=== PATIENT | female | born 1970 | race Caucasian/White ===

== ENCOUNTER 2021-02-13 12:19 | Emergency (ER) | payer MEDICAID ==
[~2021-02-13] VITALS: Ht 157.5 cm; Wt 61.3 kg
[2021-02-13 12:30] VITALS: BP 99/58
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
[2021-02-13] MEDS ORDERED: HYDROcodone/APAP 7.5/325MG 1 TAB TABLET PO ONE (13:00)
--- NOTE | 2021-02-13 13:25 | RAD ---
Right RIBS with PA chest. HISTORY: Pain after a fall PA view was taken of the chest. There is no pneumothorax or pleural effusion. There is a Linx device at the GE junction in normal position. There are no acute infiltrates. Heart is normal in size. There is an old humerus fracture on the right with a plate and multiple screws. There are multiple right rib fractures most of which appear old. An acute fracture would be difficult to exclude. I do not have an old study for comparison. IMPRESSION: 1. Multiple old right rib fractures. 2. An acute fracture is difficult to exclude. 3. No pneumothorax or pleural effusion. Electronically signed by: Mc Rolon MD (02/13/2021 1:23 PM) [facility]
[2021-02-13] MEDS ORDERED: HYDR-2759 PO (13:53)
== END 2021-02-13 14:11 | disposition home or self-care (01) ==
LOC: ER 12:19
DX: S20.211A Contusion of right front wall of thorax, initial encounter (principal); W18.49XA Other slipping, tripping and stumbling without falling, initial encounter; Y93.89 Activity, other specified; Y92.89 Other specified places as the place of occurrence of the external cause; Y99.8 Other external cause status
CPT/HCPCS: 71101; 99283

== ENCOUNTER 2021-06-11 15:16 | Emergency (ER) | payer MEDICAID ==
[~2021-06-11] VITALS: Ht 157.5 cm; Wt 63.0 kg
[~2021-06-11 15:16] MED LIST: HYDR-2759 PO
[2021-06-11 16:35] VITALS: BP 104/66
[2021-06-11] MEDS ORDERED: LIRA0.6P2 SQ (17:16)
[2021-06-11] MEDS ORDERED: INSU100I17 SQ (17:16)
[2021-06-11] MEDS ORDERED: METF500T16 PO (17:16)
[2021-06-11] MEDS ORDERED: GABA-586 PO (17:16)
[2021-06-11] MEDS ORDERED: ALPR1TAB6 PO (17:16)
--- NOTE | 2021-06-11 17:17 | PHYS DOC ---
Past History Past Medical History: Anxiety, Diabetes Past Surgical History: Appendectomy, Other Additional Past Surgical Histo: Breast reduction, BILATERAL KNEES, BREAST REDUCTION Alcohol Use: None Adult General Chief Complaint Chief Complaint: MEDICATION REFILL HPI HPI Patient is a 50-year-old female patient with history of diabetes type 2, anxiety, among other illnesses who presents the ED today requesting medication refill. Patient states she moved from [facility] to [facility] recently. She states her own primary care doctor in [facility] went on maternity leave and she was unable to get refills of her medications. She states she needs a refill for NovoLog, Victoza, alprazolam, Metformin. She is also requesting something for chronic nerve pain from diabetes. She states she has an appointment with Leandro Dillard upstairs on Tuesday next week. Review of Systems Review of Systems Constitutional: Visit for medication refill denies fever or chills [] : Denies dysuria or hematuria [] Musculoskeletal: Denies back pain or joint pain [] Integument: Denies rash or skin lesions [] Neurologic: Denies headache, focal weakness or sensory changes [] All other systems were reviewed and found to be within normal limits, except as documented in this note. Allergies Allergies Allergies Coded Allergies Type Severity Reaction Last Updated Verified acetaminophen Allergy Unknown 06/11/21 Yes amitriptyline Allergy Unknown 06/11/21 Yes cyclobenzaprine Allergy Unknown 02/13/21 Yes dextromethorphan Allergy Unknown 06/11/21 Yes diphenhydramine Allergy Unknown 02/13/21 Yes doxylamine Allergy Unknown 06/11/21 Yes ketorolac Allergy Unknown 02/13/21 Yes nalbuphine Allergy Unknown 02/13/21 Yes pseudoephedrine Allergy Unknown 06/11/21 Yes tramadol Allergy Unknown 02/13/21 Yes Physical Exam Physical Exam Constitutional: Well developed, well nourished, no acute distress, non-toxic appearance. [] Skin: Warm, dry, no erythema, no rash. [] Back: No tenderness, no CVA tenderness. [] Extremities: No tenderness, no cyanosis, no clubbing, ROM intact, no edema. [] Neurologic: Alert and oriented X 3, normal motor function, normal sensory function, no focal deficits noted. [] Psychologic: Affect normal, judgement normal, mood normal. [] Current Patient Data Vital Signs Vital Signs Date Time Temp Pulse Resp B/P (MAP) Pulse Ox O2 Delivery O2 Flow Rate FiO2 06/11/21 16:35 97.9 92 20 104/66 (79) 100 Room Air EKG EKG [] Radiology/Procedures Radiology/Procedures [] Heart Score C/O Chest Pain: N/A Risk Factors: Risk Factors: DM, Current or recent (<one month) smoker, HTN, HLP, family history of CAD, obesity. Risk Scores: Risk Factors: DM, Current or recent (<one month) smoker, HTN, HLP, family history of CAD, obesity. Course & Med Decision Making Course & Med Decision Making Pertinent Labs and Imaging studies reviewed. (See chart for details) This is a 50-year-old female patient presented to the ED today requesting refill for medication she is out of. See HPI. She has an appointment with a new PCP in [email or web address] on Tuesday next . I gave her a refill for NovoLog, Victoza, alprazolam gabapentin and Metformin. Dragon Disclaimer Dragon Disclaimer This electronic medical record was generated, in whole or in part, using a voice recognition dictation system. Departure Departure: Impression: Primary Impression: Medication refill Disposition: HOME / SELF CARE / HOMELESS Condition: STABLE Referrals: NON,STAFF (PCP) follow up with Prince Dillard on Tuesday Patient Instructions: Medication Refill, Emergency Department Additional Instructions: We refilled some of your medications. Please ensure you follow-up with Prince Dillard on Tuesday as scheduled Scripts Liraglutide (VICTOZA 3-JORGE LUIS) 0.6 Mg/0.1 Ml Pen.injctr 1.8 MG SQ DAILY, #9 ML Prov: SHARATH BROWN PSYCHOLOGY INTERN 06/11/21 Insulin Aspart (NOVOLOG FLEXPEN) 100 Unit/1 Ml Insuln.pen 1 UNIT SQ TIDAC, #1 SYR slidding scale Prov: SHARATH BROWN PSYCHOLOGY INTERN 06/11/21 Metformin Hcl (METFORMIN HCL) 500 Mg Tablet 1 TAB PO BID, #12 TAB 3 Refills Prov: SHARATH BROWN PSYCHOLOGY INTERN 06/11/21 Gabapentin (GABAPENTIN ) 300 Mg Capsule 300 MG PO TID for NEUROGENIC PAIN, #21 CAP Prov: SHARATH BROWN APRN 06/11/21 Alprazolam (ALPRAZOLAM) 1 Mg Tablet 1 TAB PO BID, #12 TAB Prov: SHARATH BROWN APRN 06/11/21 SHARATH BROWN APRN Jun 11, 2021 17:17
== END 2021-06-11 17:24 | disposition home or self-care (01) ==
LOC: ER 15:16
DX: E11.9 Type 2 diabetes mellitus without complications (principal); F41.9 Anxiety disorder, unspecified; Z76.0 Encounter for issue of repeat prescription; Z88.8 Allergy status to other drugs, medicaments and biological substances; Z88.6 Allergy status to analgesic agent
CPT/HCPCS: 99281

== ENCOUNTER 2021-06-16 13:33 | Emergency (ER) | payer MEDICAID ==
[~2021-06-16] VITALS: Ht 157.5 cm; Wt 63.0 kg
[~2021-06-16 13:33] MED LIST changes: +ALPR1TAB6 PO; +GABA-586 PO; +INSU100I17 SQ; +LIRA0.6P2 SQ; +METF500T16 PO
[2021-06-16 14:19] VITALS: BP 109/76
[2021-06-16] MEDS ORDERED: ORPHENADRINE CITRATE 60 MG/2 ML VIAL. IM ONE (15:30)
--- NOTE | 2021-06-16 15:45 | PHYS DOC ---
Past History Past Medical History: Anxiety, Diabetes Past Surgical History: Appendectomy, Other Additional Past Surgical Histo: Breast reduction, BILATERAL KNEES Alcohol Use: None General Adult EDM: Chief Complaint: MEDICATION REFILL HPI: HPI: Patient is a 50 year old female who returns to the emergency department for medication refill. She was seen 1 week ago and provided with refills of her daily medications. She was supposed to see Dr. Dillard today, but the office does not accept her insurance, so she was not seen. Patient also requests an additional medication for chronic low back pain. 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 She has no additional complaints. Review of Systems: Review of Systems: ROS negative or noncontributory except as mentioned in HPI. Current Medications: Current Meds: Current Medications Medications (Trade) Dose Ordered Sig/Joon Start Time Stop Time Status Last Admin Dose Admin Orphenadrine Citrate (Norflex) 60 mg 1X ONCE 06/16/21 15:30 06/16/21 15:31 UNV Allergies: Allergies: Allergies Coded Allergies Type Severity Reaction Last Updated Verified acetaminophen Allergy Unknown 06/11/21 Yes amitriptyline Allergy Unknown 06/11/21 Yes cyclobenzaprine Allergy Unknown 02/13/21 Yes dextromethorphan Allergy Unknown 06/11/21 Yes diphenhydramine Allergy Unknown 02/13/21 Yes doxylamine Allergy Unknown 06/11/21 Yes ketorolac Allergy Unknown 02/13/21 Yes nalbuphine Allergy Unknown 02/13/21 Yes pseudoephedrine Allergy Unknown 06/11/21 Yes tramadol Allergy Unknown 02/13/21 Yes Physical Exam: PE: Constitutional: Well developed, well nourished, no acute distress, non-toxic appearance. Cardiovascular: Heart rate regular rhythm, no murmur. Lungs & Thorax: Bilateral breath sounds clear to auscultation. Abdomen: Bowel sounds normal, soft, no tenderness, no masses, no pulsatile masses. Skin: Warm, dry, no erythema, no rash. Back: No step-offs, paraspinal tenderness appreciated low back, straight leg raise negative bilaterally. Extremities: No tenderness, no cyanosis, no clubbing, ROM intact, no edema. Neurologic: Alert and oriented x4, steady and symmetrical gait, no focal deficits noted. Current Patient Data: Vital Signs: Vital Signs Date Time Temp Pulse Resp B/P (MAP) Pulse Ox O2 Delivery O2 Flow Rate FiO2 06/16/21 14:19 98.2 82 18 109/76 (87) 100 Room Air Heart Score: C/O Chest Pain: No Course & Med Decision Making: Course & Med Decision Making Pertinent Labs and Imaging studies reviewed. (See chart for details) Patient is a 50-year-old female seeking medication refill after being unable to establish primary care today with Dr. Dillard's office. She also continues to complain of low back pain. She request refill of gabapentin, but refuses Norflex here in the department. She is concerned that there would be cross- reactivity between a Flexeril and Norflex allergy. Patient became tearful in the department after being informed that narcotic medications are not indicated for nonsurgical back pain. I advised her to contact Dr. Perez for consultation to resume pain management and treatment. Patient understands and is agreeable to discharge plan. Dragon Disclaimer: Dragon Disclaimer: This electronic medical record was generated, in whole or in part, using a voice recognition dictation system. Departure Departure: Impression: Primary Impression: Medication refill Additional Impression: Chronic lower back pain Qualified Codes: M54.50 - Low back pain, unspecified; G89.29 - Other chronic pain Disposition: 01 HOME / SELF CARE / HOMELESS Condition: STABLE Referrals: PCP,MARCELO (PCP) VINNIE PEREZ MD Patient Instructions: Back Pain, Adult, [id number], Medication Refill, Emergency Department Additional Instructions: EMERGENCY DEPARTMENT GENERAL DISCHARGE INSTRUCTIONS Thank you for coming to [facility] (ED) today and trusting us with you care. We trust that you had a positive experience in our Emergency Department. If you wish to speak to the department management, you may call the director at . YOUR FOLLOW UP INSTRUCTIONS ARE FOLLOWS: Do you have a private doctor? If you do not have a private doctor, please ask for a resource list of physicians or clinics that may be able to assist you with follow up care. ADDITIONAL INSTRUCTIONS AND INFORMATION: 1. Your care today has been supervised by a physician who is specially trained in emergency care. Many problems require more than one evaluation for a complete diagnosis and treatment. We recommend that you schedule your follow up appointment as recommended to ensure complete treatment of you illness or injury. If you are unable to obtain follow up care and continue to have a problem, or if your condition worsens, we recommend that you return to the ED. 2. We are not able to safely determine your condition over the phone nor are we able to give sound medical advice over the phone. For these safety reasons, if you call for medical advice we will ask you to come to the ED for further evaluation. 3. If you have any questions regarding these discharge instructions please call the ED at . SAFETY INFORMATION: In the interest of safety, wellness, and injury prevention; we encourage you to wear your seat belt. If you smoke; quite smoking. We encourage family to use a protective helmet for bicycling and other sporting events that present an increased risk for head injury. IF YOUR SYMPTOMS WORSEN OR NEW SYMPTOMS DEVELOP, OR YOU HAVE CONCERNS ABOUT YOUR CONDITION; OR IF YOUR CONDITION WORSENS WHILE YOU ARE WAITING FOR YOUR FOLLOW UP APPOINTMENT; EITHER CONTACT YOUR PRIMARY CARE DOCTOR, THE PHYSICIAN WHOSE NAME AND NUMBER YOU WERE GIVEN, OR RETURN TO THE ED IMMEDIATELY. Scripts Insulin Aspart (NOVOLOG) 100 Unit/1 Ml Cartridge 1 UNIT SQ TIDAC for diabetes for 30 Days, #1 SYR Prov: NADJA MOISE 06/16/21 Liraglutide (VICTOZA 3-JORGE LUIS) 0.6 Mg/0.1 Ml Pen.injctr 0.6 MG SQ DAILY for diabetes for 30 Days, #1 EACH Prov: NADAJ MOISE 06/16/21 Metformin Hcl (METFORMIN HCL) 500 Mg Tablet 1 TAB PO BID for diabetes for 30 Days, #60 TAB 3 Refills Prov: NADJA MOISE 06/16/21 Alprazolam (ALPRAZOLAM) 1 Mg Tablet 1 TAB PO BID for anxiety for 7 Days, #14 TAB Prov: NADJA MOISE 06/16/21 Gabapentin (GABAPENTIN ) 300 Mg Capsule 300 MG PO TID for NEUROGENIC PAIN for 7 Days, #21 CAP Prov: NADJA MOISE 06/16/21 NADJA MOISE Jun 16, 2021 15:45
[2021-06-16] MEDS ORDERED: METF500T16 PO (16:14)
[2021-06-16] MEDS ORDERED: INSU100C4 SQ (16:14)
[2021-06-16] MEDS ORDERED: GABA-586 PO (16:14)
[2021-06-16] MEDS ORDERED: LIRA0.6P2 SQ (16:14)
[2021-06-16] MEDS ORDERED: ALPR1TAB6 PO (16:14)
== END 2021-06-16 16:33 | disposition home or self-care (01) ==
LOC: ER 13:33
DX: G89.29 Other chronic pain (principal); M54.59 Other low back pain; Z76.0 Encounter for issue of repeat prescription; E11.9 Type 2 diabetes mellitus without complications; Z90.89 Acquired absence of other organs; Z88.8 Allergy status to other drugs, medicaments and biological substances; Z88.6 Allergy status to analgesic agent
CPT/HCPCS: 99281

== ENCOUNTER → 2021-06-25 | Emergency (ER) | payer MEDICAID ==
[~2021-06-25] VITALS: Ht 157.5 cm; Wt 63.0 kg
[~2021-06-25] MED LIST changes: +ALPR0.5T6 PO; +CLON0.1T PO; +GABA600T7 PO; +INSU100C4 SQ
--- NOTE | 2021-06-25 18:29 | PHYS DOC ---
Past History Past Medical History: Anxiety, Diabetes, GERD, Hypertension Past Surgical History: Appendectomy, Other Additional Past Surgical Histo: Breast reduction, BILATERAL KNEES Alcohol Use: None General Adult EDM: Chief Complaint: MEDICATION REFILL HPI: HPI: ". I seen the doctor up stairs.. but they don't take [place].. I got an apt. with in [place].. but I need some meds refilled..before then... " Patient is a 50 year old female who presents with request for med refill. This is third visit to ED for Med. refills. P:t. seen 05/3021, then again on06/16/21. Pt has not change overr her insurance to [place] and physician here will not refill or see her in office pending transfer of insuranced. Pt. . Patient has history of anxiety, peripheral neuropathy, diabetes, hypertension, insomnia, panic disorder, and exhibit poor planing for maintenance of her chronic conditions. Patient questing refill of multiple meds. No recent travel. No specific ill contacts. Has seen [facility] in the past. but now the no longer take her insurance. Patient has a scheduled appointment in [place]. Patient has had COVID vaccinations Moderna. x2. . Has not had flu vaccination. Patient does smoke. Review of Systems: Review of Systems: Constitutional: Denies fever or chills Eyes: Denies change in visual acuity HENT: Denies nasal congestion or sore throat Respiratory: Denies cough or shortness of breath Cardiovascular: Denies chest pain or edema GI: Complains of GERD : Denies dysuria Musculoskeletal: Denies back pain or joint pain Integument: Denies rash Neurologic: Denies headache, focal weakness or sensory changes. Complains of peripheral neuropathy Endocrine: Denies polyuria or polydipsia Lymphatic: Denies swollen glands Psychiatric: Complains of anxiety Family History: Family History: Noncontributory Current Medications: Current Meds: See nursing for home meds Allergies: Allergies: Allergies Coded Allergies Type Severity Reaction Last Updated Verified acetaminophen Allergy Unknown 06/11/21 Yes amitriptyline Allergy Unknown 06/11/21 Yes cyclobenzaprine Allergy Unknown 02/13/21 Yes dextromethorphan Allergy Unknown 06/11/21 Yes diphenhydramine Allergy Unknown 02/13/21 Yes doxylamine Allergy Unknown 06/11/21 Yes ketorolac Allergy Unknown 02/13/21 Yes nalbuphine Allergy Unknown 02/13/21 Yes pseudoephedrine Allergy Unknown 06/11/21 Yes tramadol Allergy Unknown 02/13/21 Yes Physical Exam: PE: Constitutional: In acute emotional distress, non-toxic appearance. [] HENT: Normocephalic, atraumatic, bilateral external ears normal, oropharynx moist, no oral exudates, nose normal. [] Eyes: PERRLA, EOMI, conjunctiva normal, no discharge. [] Neck: Normal range of motion, no tenderness, supple, no stridor. [] Cardiovascular:Heart rate regular rhythm, no murmur [] Lungs & Thorax: Bilateral breath sounds equal apex with scattered wheezes on auscultation [] Abdomen: Bowel sounds normal, soft, no tenderness, no masses, no pulsatile masses. [] Skin: Warm, dry, no erythema, no rash. [] Back: No tenderness, no CVA tenderness. [] Extremities: No tenderness, no cyanosis, no clubbing, ROM intact, no edema. [] Neurologic: Alert and oriented X 3, normal motor function, normal sensory function, no focal deficits noted. [] Psychologic: Affect anxious, judgement normal, mood normal. [] Current Patient Data: Labs: Laboratory Tests Test 06/25/21 17:11 Glucose (Fingerstick) 82 mg/dL (70-99) Vital Signs: Vital Signs Date Time Temp Pulse Resp B/P (MAP) Pulse Ox O2 Delivery O2 Flow Rate FiO2 06/25/21 17:08 98.1 92 16 132/75 (94) 99 Room Air EKG: EKG: [] Radiology/Procedures: Radiology/Procedures: [] Heart Score: C/O Chest Pain: N/A Risk Factors: Risk Factors: DM, Current or recent (<one month) smoker, HTN, HLP, family history of CAD, obesity. Risk Scores: Score 0 - 3: 2.5% MACE over next 6 weeks - Discharge Home Score 4 - 6: 20.3% MACE over next 6 weeks - Admit for Clinical Observation Score 7 - 10: 72.7% MACE over next 6 weeks - Early Invasive Strategies Course & Med Decision Making: Course & Med Decision Making Pertinent Labs and Imaging studies reviewed. (See chart for details) Must follow up with primary. Stop smoking. Must get primary clinic for refill of chronic meds. Impression: 1. Anxiety 2. GERD 3. Peripheral neuropathy 4. Diabetes 5 . Hypertension [] Dragon Disclaimer: Cain Disclaimer: This electronic medical record was generated, in whole or in part, using a voice recognition dictation system. Departure Departure: Referrals: PCP,NO (PCP) Scripts Alprazolam (ALPRAZOLAM) 0.5 Mg Tablet 1 MG PO BID PRN for ANXIETY / AGITATION, #30 TAB 0 Refills Prov: BRISEIDA SAUCEDA MD 06/25/21 Gabapentin (GABAPENTIN) 600 Mg Tablet 600 MG PO TID for NEUROGENIC PAIN for 30 Days, #90 TAB Prov: BRISEIDA SAUCEDA MD 06/25/21 Clonidine Hcl (CLONIDINE HCL) 0.1 Mg Tablet 0.1 MG PO HS for htn, sleep for 30 Days, #30 TAB Prov: BRISEIDA SAUCEDA MD 06/25/21 Dragon Disclaimer This chart was dictated in whole or in part using Voice Recognition software in a busy, high-work load, and often noisy Emergency Department environment. It may contain unintended and wholly unrecognized errors or omissions. BRISEIDA SAUCEDA MD Jun 25, 2021 18:29
[2021-06-25 20:11] VITALS: BP 100/70
== END | disposition home or self-care (01) ==
LOC: ER 16:07
DX: F41.9 Anxiety disorder, unspecified (principal); K21.9 Gastro-esophageal reflux disease without esophagitis; E11.42 Type 2 diabetes mellitus with diabetic polyneuropathy; I10 Essential (primary) hypertension; Z76.0 Encounter for issue of repeat prescription; Z90.89 Acquired absence of other organs; Z88.8 Allergy status to other drugs, medicaments and biological substances
CPT/HCPCS: 82947; 99283